=== PATIENT | male | born 1985 | race Caucasian/White ===

== ENCOUNTER 2018-12-13 10:37 | Emergency (ER) | payer BC, OTHER ==
[~2018-12-13] VITALS: Ht 185.4 cm; Wt 71.2 kg
[~2018-12-13 10:37] MED LIST: PENICILLIN VK500 M1 PO
[2018-12-13 11:19] LABS: ABSOLUTE NEUTROPHILS 4.2 thou/uL (1.4-8.2); BASOPHILS 0.2 % (0.0-2.0); EOSINOPHILS 1.3 % (0.0-3.0); HEMATOCRIT 47.9 % (42.0-52.0); HEMOGLOBIN 16.5 gm/dL (14.0-18.0); LYMPHOCYTES 32.1 % (24.0-44.0); MCH 32.8 pg (26.0-34.0); MCHC 34.5 g/dL (28.0-37.0); MCV 95.1 fL (80.0-100.0); MONOCYTES 7.6 % (1.0-8.0); PLATELET COUNT 214 thou/uL (150-400); POLYS 58.8 % (36.0-66.0); RBC 5.03 mil/uL (4.50-6.00); RDW 12.9 % (10.5-14.5); WBC 7.1 thou/uL (4.0-11.0)
[2018-12-13] MEDS ORDERED: PRILOSEC 10MG C10 MG PO (11:20)
[2018-12-13 11:22] LABS: CALCIUM 9.2 mg/dL (8.5-10.1); CREATININE 0.9 mg/dL (0.7-1.3)
[2018-12-13 11:27] LABS: ALBUMIN 4.2 g/dL (3.4-5.0); TOTAL BILIRUBIN 0.8 mg/dL (<0.1-1.0); TOTAL PROTEIN 7.6 g/dL (6.4-8.2)
[2018-12-13] MEDS ORDERED: PROTONIX40 M1 PO (11:36)
[2018-12-13] MEDS ORDERED: ZOFRAN ODT4 MG PO (11:36)
[2018-12-13] MEDS ORDERED: CARAFATE 1 GM TA1 GM PO (11:36)
[2018-12-13] MEDS ORDERED: ULTRAM 50MG TAB50 MG PO (11:42)
[2018-12-13 12:46] VITALS: BP 111/74
== END 2018-12-13 12:47 | disposition home or self-care (01) ==
LOC: ER 10:37
PROVIDERS: Emergency Medicine
DX: R10.12 Left upper quadrant pain (principal); R11.2 Nausea with vomiting, unspecified; R53.81 Other malaise; F17.210 Nicotine dependence, cigarettes, uncomplicated